=== PATIENT | male | born 1950 | race Caucasian/White ===

== ENCOUNTER 2020-02-05 04:30 | Emergency (ER) | payer BC ==
[2020-02-05] MEDS ORDERED: Sodium Chloride 0.9% with KCl 1,000 ML IV SCH (05:30)
--- NOTE | 2020-02-05 05:32 | EDM.PDOC ---
<Jb Madrigal W - Last Filed: 02/05/20 06:56> ED HPI GENERAL MEDICAL PROBLEM - General Chief Complaint: Abdominal Pain Stated Complaint: Abdominal pain Time Seen by Provider: 02/05/20 04:30 Source of Information: Reports: Patient, Family History Limitations: Reports: No Limitations - History of Present Illness INITIAL COMMENTS - FREE TEXT/NARRATIVE: Pt. presents to ER with complaints of severe abdominal pain. Pt. states that the pain woke him from sleep at around 1:00 this AM. Pt. states that he had a colonoscopy on 01/30/2020 and 3 polyps were removed. He was also told he had diverticulosis at that time. This was performed by Dr. Blanco. He states that his PCP is Mau Jaquez PA-C. Pt. denies any fever, states he feels somewhat chilled since the pain started. No nausea, vomiting, or diarrhea. No black or tarry stools. Denies any chest pain or shortness of breath. His last BM was yesterday and he states that this was normal. Pt. states that he had lasagna for dinner last night. He has not had any ill contacts. No cough or congestion. Denies any fever or chills. Onset: Today Onset Date: 02/05/20 Onset Time: 01:00 Location: Reports: Abdomen Quality: Reports: Sharp Severity: Severe - Related Data Allergies Allergy/AdvReac Type Severity Reaction Status Date / Time No Known Allergies Allergy Verified 02/05/20 05:26 ED ROS GENERAL - Review of Systems Review Of Systems: See Below Constitutional: Reports: No Symptoms HEENT: Reports: No Symptoms Respiratory: Reports: No Symptoms Cardiovascular: Reports: No Symptoms Endocrine: Reports: No Symptoms GI/Abdominal: Reports: Abdominal Pain, Flatus. Denies: Black Stool, Bloody Stool, Constipation, Diarrhea, Distension, Hematemesis, Hematochezia, Melena, Nausea, Vomiting : Reports: No Symptoms Musculoskeletal: Reports: No Symptoms Skin: Reports: No Symptoms Neurological: Reports: No Symptoms Psychiatric: Reports: No Symptoms Hematologic/Lymphatic: Reports: No Symptoms Immunologic: Reports: No Symptoms ED EXAM, GENERAL - Physical Exam Exam: See Below Exam Limited By: No Limitations General Appearance: Alert, WD/WN, No Apparent Distress Neck: Normal Inspection, Supple, Non-Tender Respiratory/Chest: Lungs Clear, Normal Breath Sounds, No Accessory Muscle Use, Chest Non-Tender Cardiovascular: Normal Peripheral Pulses, Regular Rate, Rhythm, No Edema, No JVD Peripheral Pulses: 4+: Radial (L) GI/Abdominal: Soft, Non-Tender, No Distention, No Mass (Male) Exam: Deferred Rectal (Males) Exam: Deferred Back Exam: Normal Inspection, Full Range of Motion Extremities: Normal Inspection, Normal Range of Motion, Non-Tender, No Pedal Edema, Normal Capillary Refill Neurological: Alert, Oriented, CN II-XII Intact, Normal Cognition, Normal Reflexes, No Motor/Sensory Deficits Psychiatric: Normal Affect, Normal Mood Skin Exam: Warm, Dry, Intact, Normal Color, No Rash Lymphatic: No Adenopathy #1 Interpretation Rhythm: NSR Goodman: Normal P-Wave: Present QRS: Normal ST-T: Normal QT: Normal Comparison: No Change Course - Radiology Interpretation Free Text/Narrative:: Cholelithiasis, no CT evidence of cholecystitis. No bile duct obstruction noted. No evidence of ruptured viscus or other acute pathology. - Re-Assessments/Exams Free Text/Narrative Re-Assessment/Exam: IV access was established. Pt. was given 1 mg dilaudid and 4mg Zofran IV. He reported minimal improvement in the discomfort. Pt. was given a second 1 mg dose of IV dilaudid, and reported his pain was down to approx. 5. He was given toradol 15mg IV. Pt. was found to be hypokalemic and was started on NS with 40KCL at 250ml/hr. Departure - Departure Disposition: Home, Self-Care 01 Clinical Impression: Hypokalemia Cholelithiases Qualifiers: Cholelithiasis location: other site Biliary obstruction: without biliary obstruction Qualified Code(s): K80.80 - Other cholelithiasis without obstruction - Discharge Information Instructions: Acetaminophen; Hydrocodone tablets or capsules, Cholelithiasis, [id number], Gallbladder Eating Plan Referrals: PCP,Unobtain [Ordering Only Provider] - Forms: ED Department Discharge Additional Instructions: Home to rest. [place] 10/325mg 1 every 4-6 hours as needed for pain Ibuprofen 200mg 3 tabs every 6 hours as needed for pain Abdifatah will be in contact with you to set up a time to see the surgeon. Follow the enclosed eating plan. Minimize consumption of cheese, meat, butter, ice cream, and other fatty foods, as these contribute to the discomfort. You will need to follow-up for recheck of your potassium. It is possible that it was low due to you bowel prep. Potassium tabs. Increase your home potassium to 2 tabs daily for the next 5 days. Recheck in the clinic on monday. <Albino Oliver - Last Filed: 02/05/20 17:40> Course - Orders/Labs/Meds Labs: Laboratory Tests 02/05/20 02/05/20 02/05/20 Range/Units 04:44 04:44 04:44 WBC 7.5 (4.0-10.0) x10^3/uL RBC 4.64 (4.5-6.0) x10^6/uL Hgb 13.4 L (14.0-18.0) g/dL Hct 38.2 L (40.0-52.0) % MCV 82.3 (78.0-93.0) fL MCH 28.9 (26.0-32.0) pg MCHC 35.1 (32.0-36.0) g/dL RDW Coeff of Rosalina 14.7 (10.0-15.0) % Plt Count 194 (130-400) x10^3/uL Neut % (Auto) 79.5 (50.0-80.0) % Lymph % (Auto) 13.5 L (25.0-50.0) % [place] % (Auto) 6.0 (2.0-11.0) % Eos % (Auto) 0.7 (0.0-4.0) % Baso % (Auto) 0.3 (0.2-1.2) % Sodium 139 (136-145) mmol/L Potassium 2.6 L* (3.5-5.1) mmol/L Chloride 101 (98-107) mmol/L Carbon Dioxide 29 (21-32) mmol/L Anion Gap 11.6 (10-20) mmol/L BUN 18 (7-18) mg/dL Creatinine 1.1 (0.70-1.30) mg/dL Est Cr Clr Drug Dosing TNP Estimated GFR (MDRD) > 60 Glucose 154 H (74-106) mg/dL Calcium 9.2 (8.5-10.1) mg/dL Corrected Calcium 8.80 (8.5-10.1) mg/dL Total Bilirubin 2.1 H (0.2-1.0) mg/dL AST 18 (15-37) U/L ALT 26 (16-63) U/L Alkaline Phosphatase 89 (46-116) U/L Troponin I < 0.017 (<=0.056) ng/mL C-Reactive Protein 0.4 (<=0.9) mg/dL Total Protein 7.5 (6.4-8.2) g/dL Albumin 4.5 (3.4-5.0) g/dL Globulin 3.0 Albumin/Globulin Ratio 1.50 Amylase 68 (25-115) U/L Lipase 70 L (73-393) U/L Urine Color (YELLOW) Urine Appearance (CLEAR) Urine pH (5.0-8.0) Ur Specific [place] Urine Protein (NEGATIVE) mg/dL Urine Glucose (UA) (NEGATIVE) mg/dL Urine Ketones (NEGATIVE) mg/dL Urine Occult Blood (NEGATIVE) Urine Nitrite (NEGATIVE) Urine Bilirubin (NEGATIVE) Urine Urobilinogen (0.2) EU/dL Ur Leukocyte Esterase (NEGATIVE) Urine RBC (NOT SEEN) /HPF Urine WBC (NOT SEEN) /HPF Ur Squamous Epith Cells (NEGATIVE) /HPF Urine Bacteria (NEGATIVE) /HPF Urine Mucus (NEGATIVE) /LPF 02/05/20 Range/Units 04:44 WBC (4.0-10.0) x10^3/uL RBC (4.5-6.0) x10^6/uL Hgb (14.0-18.0) g/dL Hct (40.0-52.0) % MCV (78.0-93.0) fL MCH (26.0-32.0) pg MCHC (32.0-36.0) g/dL RDW Coeff of Rosalina (10.0-15.0) % Plt Count (130-400) x10^3/uL Neut % (Auto) (50.0-80.0) % Lymph % (Auto) (25.0-50.0) % [place] % (Auto) (2.0-11.0) % Eos % (Auto) (0.0-4.0) % Baso % (Auto) (0.2-1.2) % Sodium (136-145) mmol/L Potassium (3.5-5.1) mmol/L Chloride (98-107) mmol/L Carbon Dioxide (21-32) mmol/L Anion Gap (10-20) mmol/L BUN (7-18) mg/dL Creatinine (0.70-1.30) mg/dL Est Cr Clr Drug Dosing Estimated GFR (MDRD) Glucose (74-106) mg/dL Calcium (8.5-10.1) mg/dL Corrected Calcium (8.5-10.1) mg/dL Total Bilirubin (0.2-1.0) mg/dL AST (15-37) U/L ALT (16-63) U/L Alkaline Phosphatase (46-116) U/L Troponin I (<=0.056) ng/mL C-Reactive Protein (<=0.9) mg/dL Total Protein (6.4-8.2) g/dL Albumin (3.4-5.0) g/dL Globulin Albumin/Globulin Ratio Amylase (25-115) U/L Lipase (73-393) U/L Urine Color Yellow (YELLOW) Urine Appearance Clear (CLEAR) Urine pH 7.5 (5.0-8.0) Ur Specific [place] 1.020 Urine Protein Negative (NEGATIVE) mg/dL Urine Glucose (UA) Negative (NEGATIVE) mg/dL Urine Ketones Trace H (NEGATIVE) mg/dL Urine Occult Blood Negative (NEGATIVE) Urine Nitrite Negative (NEGATIVE) Urine Bilirubin Negative (NEGATIVE) Urine Urobilinogen 0.2 (0.2) EU/dL Ur Leukocyte Esterase Negative (NEGATIVE) Urine RBC 0-5 (NOT SEEN) /HPF Urine WBC 0-5 (NOT SEEN) /HPF Ur Squamous Epith Cells Not seen (NEGATIVE) /HPF Urine Bacteria Rare (NEGATIVE) /HPF Urine Mucus Few H (NEGATIVE) /LPF Meds: Medications Discontinued Medications Generic Name Dose Route Start Last Admin Trade Name Freq PRN Reason Stop Dose Admin Hydromorphone HCl 1 mg 02/05/20 06:54 02/05/20 06:58 Dilaudid IVPUSH 02/05/20 06:55 1 mg ONETIME ONE Administration Potassium Chloride/Sodium Chloride 1,000 mls @ 250 mls/hr 02/05/20 05:30 02/05/20 06:05 Normal Saline With 40 Meq Kcl IV 250 mls/hr ASDIRECTED TSERING Administration Iopamidol 100 ml 02/05/20 05:58 02/05/20 06:01 Isovue-300 (61%) IVPUSH 02/05/20 05:59 100 ml ONETIME ONE Administration Ketorolac Tromethamine Confirm 02/05/20 06:40 Toradol Administered 02/05/20 06:41 Dose 15 mg .ROUTE .STK-MED ONE Potassium Chloride 20 meq 02/05/20 08:10 02/05/20 08:16 Klor-Con 10 PO 02/05/20 08:11 20 meq NOW STA Administration Potassium Chloride 40 meq 02/05/20 08:10 02/05/20 08:17 Potassium Chloride Solution PO 02/05/20 08:11 40 meq ONETIME ONE Administration - Re-Assessments/Exams Free Text/Narrative Re-Assessment/Exam: 02/05/20 0700 Assumed the care of this patient at shift change at 0700. Patient is resting comfortably on the cot. He is absolutely pain-free and symptomatic free. He has no nausea no vomiting. Feels pretty good he would like to go home. I reviewed the CT results with the patient concerning for cholelithiasis. As well as a stone in the neck of the gallbladder. Laboratory evaluation is rather unremarkable otherwise. He has a normal white blood cell count. Most likely his hypokalemia is due to the recent bowel prep for his colonoscopy. He was given 40 mEq of oral solution of potassium his IV potassium infusion was discontinued. He was given 20 mEq of an oral tablet extended release. We will increase his potassium at home to 40 mEq daily. Have him recheck in the clinic. I will contact the clinic today and get a referral for him to get into [facility] to get his gallbladder out. Discharge directions as below are explained to the patient. He was comfortable this plan and his questions are a nswered. Departure - Departure Time of Disposition: 07:51
[2020-02-05] MEDS ORDERED: Iopamidol 612 MG/ML 100 ML Bottle IVPUSH ONE (05:58)
[2020-02-05 06:18] LABS: ANION GAP 11.6 mmol/L (10-20); CHLORIDE,CL 101 mmol/L (98-107); SODIUM,NA 139 mmol/L (136-145)
[2020-02-05] MEDS ORDERED: Ketorolac 15 MG/ML SDV ONE (06:40)
[2020-02-05] MEDS ORDERED: HYDROmorphone 1 MG/ML Syringe IVPUSH ONE (06:54)
[2020-02-05] MEDS ORDERED: Potassium Chloride 10 MEQ Tab.ER PO STA (08:10)
[2020-02-05] MEDS ORDERED: Potassium Chloride 10% 20 MEQ/15 ML Soln 15 ML UD Cup PO ONE (08:10)
--- NOTE | 2020-02-05 08:15 | CT ---
[id number] CT/CT Abdomen Pelvis W IV EXAM: CT Abdomen Pelvis W IV CLINICAL DATA: ABDOMINAL PAIN COMPARISON STUDY: None. FINDINGS: Lung bases are clear. Splenomegaly. Spleen measures 15.1 cm in AP dimension. Cholelithiasis. No evidence of acute cholecystitis. Liver, spleen, adrenal glands, and kidneys are unremarkable, other than a simple cortical cyst arising from the right kidney measuring up to 20 mm in diameter. Tiny subcentimeter cortical hypodensities left kidney are too small to characterize but also likely cysts. No urinary tract calculi or evidence of obstruction. No bowel obstruction inflammation. Appendix is normal. Urinary bladder is distended. Prostate gland is enlarged. Spondylosis. No acute fracture or compression deformity. IMPRESSION: No acute findings in the abdomen or pelvis. Chronic findings are described above. John Paul Clement MD 02/05/20 0814 Thank you for allowing us to participate in the care of your patient.
== END 2020-02-05 08:44 | disposition home or self-care (01) ==
LOC: VM.ED 04:30
DX: K80.80 Other cholelithiasis without obstruction (principal); E87.6 Hypokalemia
CPT/HCPCS: 74177; 80053; 81001; 82150; 83690; 84484; 85025; 86140; 93005; 93010; 96374; 99284; 99284-25; A9270-GY; J1170; J3480; Q9967